=== PATIENT | female | born 1965 | race Caucasian/White ===

== ENCOUNTER 2021-12-19 10:39 | Day surgery (SDC) | payer OTHER ==
[2021-12-19] MEDS ORDERED: BUPIVACAINE 0.5% VIAL IJ ONE (12:55)
[2021-12-19] MEDS ORDERED: Depo-Medrol 40 MG/ML IM ONE (12:55)
[2021-12-19] MEDS ORDERED: DIPRIVAN 200 MG/20 ML IV ONE (13:24)
[2021-12-19] MEDS ORDERED: Lactated Ringers 1,000 ML IV ONE (13:52)
--- NOTE | 2021-12-19 15:17 | XRAY ---
Indication: Left greater trochanter bursa injection. Intraoperative fluoroscopy provided for 13 seconds. Single digital spot image obtained prone submitted for interpretation demonstrates needle tip lateral to the left greater trochanter. Small amount of contrast injected for needle tip placement. Correlate with intraoperative findings/report.
--- NOTE | 2021-12-19 15:17 | XRAY ---
Indication: Left SI joint injection. Intraoperative fluoroscopy provided for 14 seconds. 2 digital spot image submitted for interpretation demonstrates posterior needle tip projecting over the inferior left SI joint. Correlate with intraoperative findings/report.
--- NOTE | 2021-12-19 15:23 | XRAY ---
13 seconds fluoroscopy time in surgery for injection of the greater trochanter of the left hip.
--- NOTE | 2021-12-19 15:23 | XRAY ---
14 seconds fluoroscopy time in surgery for injection of the left SI joint.
== END 2021-12-19 13:50 | disposition home or self-care (01) ==
LOC: SDC-PAIN 10:39
PROVIDERS: ATTEND Psychiatry & Neurology Pain Medicine
DX: M46.1 Sacroiliitis, not elsewhere classified (principal)
CPT/HCPCS: 20610; 27096; 72020; 73501; 77002; 84703; G0260; J1030; J2704; Q9966

== ENCOUNTER 2022-05-22 12:23 | Day surgery (SDC) | payer OTHER ==
[2022-05-22] MEDS ORDERED: Depo-Medrol 40 MG/ML IM ONE (12:24)
[2022-05-22] MEDS ORDERED: XYLOCAINE-MPF 1% 5ML SDV IJ ONE (12:24)
[2022-05-22] MEDS ORDERED: Marcaine Mpf 0.5% Vial 30 Ml IJ ONE (12:24)
--- NOTE | 2022-05-22 16:29 | XRAY ---
Indication: Left SI joint and left greater trochanter bursa injections. Intraoperative fluoroscopy provided for 37 seconds. 3 digital spot image obtained prone submitted for interpretation demonstrates posterior needle tip projecting over the inferior left SI joint. Second needle tip lateral to left greater trochanter with small amount of contrast injected for needle tip placement. Correlate with intraoperative findings/report.
--- NOTE | 2022-05-22 16:44 | XRAY ---
37 seconds of fluoroscopy was used in surgery for a left SI and left hip greater trochanteric bursa injections.
== END 2022-05-22 14:30 | disposition home or self-care (01) ==
LOC: SDC-PAIN 12:23
PROVIDERS: ATTEND Psychiatry & Neurology Pain Medicine
DX: M46.1 Sacroiliitis, not elsewhere classified (principal); M16.12 Unilateral primary osteoarthritis, left hip; Z79.899 Other long term (current) drug therapy
CPT/HCPCS: 20610; 27096; 73501; 77002; 81025; G0260; J1030; Q9966